=== PATIENT | male | born 1975 | race Caucasian/White ===

== ENCOUNTER → 2017-01-30 | Outpatient (CLI) | payer OTHER | LOC: FIMAGING 18:41 | PROVIDERS: ATTEND Orthopaedic Surgery Foot and Ankle Surgery | DX: M76.822 Posterior tibial tendinitis, left leg (principal); M76.72 Peroneal tendinitis, left leg; S92.142A Displaced dome fracture of left talus, initial encounter for closed fracture; M77.52 Other enthesopathy of left foot and ankle; M25.872 Other specified joint disorders, left ankle and foot ==

== ENCOUNTER 2018-08-08 21:11 | Emergency (ER) | payer OTHER ==
[2018-08-08 21:57] LABS: PLATELET COUNT 203 10^3/uL (150-400)
--- NOTE | 2018-08-08 22:05 | EDPHY ---
H & P Stated Complaint: FEVER 72 HR POST OF R HIP REPLAEMENT Time Seen by Provider: 08/08/18 21:40 HPI/ROS: CHIEF COMPLAINT: Fever HISTORY OF PRESENT ILLNESS: 42-year-old male s/p right hip replacement 3 days ago presents with fever. Onset of fatigue this afternoon, followed by fever to 102 at home. Associated with chills. No other associated sx, specifically no cough or SOB. Lives in [place] and oxygen saturation was 85% on room air at elevation. History of aspiration pneumonia x3 in the postop period, concern for recurrent aspiration pneumonia. Admitted in 11/2017 for post-op pneumonia, d /c'd home on Augmentin. Rt hip is gradually improving as expected, mild pain, stopped taking Percocet, now on Tylenol. No URI symptoms, abdominal pain or urinary symptoms. REVIEW OF SYSTEMS: complete 10 point ROS reviewed and is negative except for the noted elements in the HPI Source: Patient - Personal History Current Tetanus Diphtheria and Acellular Pertussis (TDAP): Yes - Medical/Surgical History Hx Asthma: Yes Hx Chronic Respiratory Disease: No Hx Diabetes: No Hx Cardiac Disease: No Hx Renal Disease: No Hx Cirrhosis: No Hx Alcoholism: No Hx HIV/AIDS: No Hx Splenectomy or Spleen Trauma: No Other PMH: asthma, migraines, bilat hip and r shoulder surgery, R HIP REPLACEMENT July, - Family History Significant Family History: No pertinent family hx - Social History Smoking Status: Former smoker Alcohol Use: Sober Drug Use: None Additional Social History: with kids Employment: charge nurse on the oncology floor at [employer] - Physical Exam Exam: General Appearance: Alert, quite pleasant and talkative, nontoxic-appearing Eyes: Pupils equal and round, no conjunctival pallor or injection ENT, Mouth: Mucous membranes moist Neck: Normal inspection Respiratory: Lungs are clear to auscultation Cardiovascular: Regular rate and rhythm Gastrointestinal: Abdomen is soft and nontender Neurological: A&O, nonfocal exam Skin: Warm and dry Extremities: Right hip-swelling and faint erythema/ecchymosis present Psychiatric: Mood and affect normal Constitutional: Initial Vital Signs Temperature (C) 37.2 C 08/08/18 21:14 Heart Rate 73 08/08/18 21:14 Respiratory Rate 16 08/08/18 21:14 Blood Pressure 133/52 H 08/08/18 21:14 O2 Sat (%) 94 04/12/19 21:14 O2 Delivery Mode Room Air Allergies/Adverse Reactions: No Known Allergies Allergy (Unverified 10/25/11 09:04) Home Medications: Medication Instructions Recorded Budesonide/Formoterol 160/4.5 2 puffs IH BID PRN 05/05/14 [Symbicort 160-4.5 Mcg Inh (*)] Levalbuterol Inhaler [Xopenex Hfa 2 puffs IH PRN PRN 05/05/14 Inhaler (*)] Diazepam 5 mg PO Q6H PRN 01/25/16 NAPROXEN 500 mg PO BID 01/25/16 oxyCODONE HCL/ACETAMINOPHEN 1 each PO Q6H PRN 01/25/16 [Percocet 10-325 mg Tablet] Amoxicillin/Clavulanate Pot 875 mg PO BID #16 tab 01/27/16 [Augmentin 875 MG TAB (*)] Ipratropium/Albuterol [Duoneb (*)] 3 ml IH QID PRN #30 deyvial 01/27/16 Levalbuterol 0.63 mg [Xopenex 0.63 mg IH Q6HRS PRN #30 deyvial 01/27/16 0.63MG Neb (*)] Magnesium Hydroxide [Milk of 30 ml PO DAILY PRN #0 udcup 01/27/16 Magnesia (*)] Pantoprazole Sodium [Protonix 40mg 40 mg PO BID #60 tab 01/27/16 (*)] Polyethylene Glycol 3350 [Miralax 17 gm PO DAILY PRN #0 pkt 01/27/16 17 gm (*)] Sennosides/Docusate Sodium 1 - 2 tab PO BID #0 tab 01/27/16 [Senokot-S] Amoxicillin/Clavulanate Pot 875 mg PO BID #20 tab 08/08/18 [Augmentin 875 MG TAB (RX)] Medical Decision Making - Diagnostics Imaging Results: CXR: NAD Imaging: I viewed and interpreted images myself ED Course/Re-evaluation: Akin presents with post-op fever. Physical exam is unremarkable without localizing signs. Rt hip appears normal for 3 days post-op, no evidence of infection. All studies in ED unremarkable, including normal WBC, CXR and UA. Bld cx's and influenza swab pending. Concern for recurrent aspiration pneumonia , will place pt on Augmentin. 1st dose given in ED. Pt is a very reliable pt and clearly understands reasons to return. Differential Diagnosis: includes though not limited to pneumonia, UTI, hip infection, cellulitis, influenza - Data Points Laboratory Results: Laboratory Results 08/08/18 21:34 08/08/18 21:34 Medications Given: Discontinued Medications Amoxicillin/Clavulanate Potassium (Augmentin 875mg) 875 mg PO EDNOW ONE PRN Reason: Protocol Stop: 08/08/18 22:22 Last Admin: 08/08/18 22:48 Dose: 875 mg Amoxicillin/Clavulanate Potassium (Augmentin 875mg) 875 mg PO EDNOW ONE PRN Reason: Protocol Stop: 08/08/18 22:24 Last Admin: 08/08/18 22:47 Dose: 875 mg Amoxicillin/Clavulanate Potassium (Augmentin 875mg) 875 mg PO EDNOW ONE PRN Reason: Protocol Stop: 08/08/18 22:43 Last Admin: 08/08/18 22:48 Dose: 875 mg Departure - Departure Disposition: Home, Routine, Self-Care Clinical Impression: Postoperative fever Condition: Good Instructions: Fever in Adults (ED) Additional Instructions: Your tests in the ED are normal. Influenza swab and blood cultures are pending. I have prescribed Augmentin because of your history of postoperative aspiration pneumonia. Return for shortness of breath, new symptoms that suggest an alternative infection or any concerns. Referrals: Handy Garcia DO [Primary Care Provider] - As per Instructions Prescriptions: Amoxicillin/Clavulanate Pot [Augmentin 875 MG TAB (RX)] 875 mg PO BID #20 tab
[2018-08-08] MEDS ORDERED: AMOXICILLIN/CLAVULANATE POT 875/125 MG TAB PO ONE ×3 (22:21→22:42)
[2018-08-08 23:13] VITALS: BP 143/80
== END 2018-08-08 23:10 | disposition home or self-care (01) ==
LOC: EEVIPCON 21:11
DX: R50.82 Postprocedural fever (principal); Z96.641 Presence of right artificial hip joint